=== PATIENT | male | born 1985 | race Caucasian/White ===

== ENCOUNTER 2024-06-03 13:17 | Emergency (ER) | payer SELFPAY ==
[~2024-06-03] VITALS: Ht 180.3 cm; Wt 104.5 kg
[~2024-06-03 13:17] MED LIST: PANTOPRAZOLE; STATIN
[2024-06-03 13:21] VITALS: TEMP 98.1
[2024-06-03] MEDS ORDERED: Cyclobenzaprine 10 MG TAB PO ONE (17:00)
[2024-06-03] MEDS ORDERED: Ketorolac 30 MG/ML VIAL IM ONE (17:00)
[2024-06-03] MEDS ORDERED: CELEBREX 200MG200 MG PO (17:55)
[2024-06-03] MEDS ORDERED: FLEXERIL 1010 MG/TAB PO (17:55)
[2024-06-03 17:57] VITALS: BP 111/81; PULSE 60
== END 2024-06-03 18:05 | disposition home or self-care (01) ==
LOC: COL.ER 13:17
DX: S39.012A Strain of muscle, fascia and tendon of lower back, initial encounter (principal); X50.1XXA Overexertion from prolonged static or awkward postures, initial encounter; Y92.89 Other specified places as the place of occurrence of the external cause; Y99.0 Civilian activity done for income or pay
CPT/HCPCS: J1885